=== PATIENT | male | born 2000 ===

== ENCOUNTER 2024-12-10 18:32 | Emergency (ER) | payer SELFPAY ==
--- NOTE | ~2024-12-10 | XR_ITS ---
CLINICAL HISTORY: chest pain Two views of the chest. COMPARISON: None provided. FINDINGS: Normal heart and mediastinal contours. No consolidation. No pleural effusion or pneumothorax. No acute fracture. IMPRESSION: 1. No consolidation. This document has been electronically signed by: Pedro Hernandez MD on 12/10/2024 20:18:15
--- NOTE | 2024-12-10 18:38 | ECG_ITS ---
Test Reason : CHEST PAIN Blood Pressure : */* mmHG Vent. Rate : 64 BPM Atrial Rate : 64 BPM P-R Int : 182 ms QRS Dur : 88 ms QT Int : 386 ms P-R-T Axes : 30 -6 31 degrees QTcB Int : 398 ms Normal sinus rhythm Normal ECG No previous ECGs available Referred By: Belinda Hernandes Electronically Signed By: London Sapp
--- NOTE | 2024-12-10 19:04 | ED_ITS ---
HPI - General Adult General Chief complaint: Chest Pain Stated complaint: cp Related Data Allergies Allergy/AdvReac Type Severity Reaction Status Date / Time No Known Allergies Allergy Verified 12/10/24 19:08 [facility] Social History Social History Advance Directives: No Advance Directives Information Provided: No Physical Exam ED Vital Signs: BMI result Body Mass Index 39.3 Course Course Course Narrative: This is a rapid medical exam performed by Travis Hernandes NP: Additional HPI, ROS, PE not included below will be deferred to primary provider. Patient is a 24- year old male presenting with complaint of midsternal chest pain which started this morning, woke him from sleep. Feels short of breath, states pain is radiating to the back and up right neck. Denies recent cough or other URI sxs. Plan: EKG, cxr, labs Patient left the emergency department before myself or any of the other clinicians could review or explain physical exam findings, test results, need or lack there of for additional testing, treatment options, or a treatment plan. Medical Decision Making Lab Data 12/10/24 19:33 12/10/24 19:33 Labs: Lab Results 12/10/24 Range/Units 19:33 WBC 9.6 (4.8-10.8) X10*3/uL RBC 4.88 (4.60-5.80) X10*6/uL Hgb 14.2 (14.0-18.0) g/dl Hct 43.4 (42.0-52.0) % MCV 88.9 (80.0-98.0) fL MCH 29.1 (27.0-33.0) pg MCHC 32.7 (31.0-36.0) g/dl RDW 12.8 (11.0-16.0) % Plt Count 311 (160-400) X10*3/uL MPV 9.2 L (9.4-12.4) fL Immature Gran % (Auto) 0.2 (0.0-0.4) % Neut % (Auto) 50.5 (45-73) % Lymph % (Auto) 34.1 (20-40) % Logan % (Auto) 7.7 (2-11) % Eos % (Auto) 6.9 H (0-4) % Baso % (Auto) 0.6 (0-2) % Lymph # (Auto) 3.3 (1.2-4.9) X10*3/uL Logan # (Auto) 0.7 (0.1-1.2) X10*3/uL Eos # (Auto) 0.7 H (0.0-0.4) X10*3/uL Baso # (Auto) 0.1 (0.0-0.2) X10*3/uL Abs Immat Gran (auto) 0.02 (0.00-0.03) X10*3/uL Absolute Neuts (auto) 4.9 (2.0-8.3) x10*3/uL Absolute Nucleated RBC 0.000 (0.0-0.012) X10*3/uL Nucleated RBC % (auto) 0.0 (0.0-0.2) /100WBC Sodium 141 (135-145) mmol/L Potassium 4.2 (3.3-5.1) mmol/L Chloride 105 (96-108) mmol/L Carbon Dioxide 27 (22-29) mmol/L Anion Gap 13 (12-20) BUN 11 (9-16) mg/dL Creatinine 0.98 (0.5-1.4) mg/dL Estim Creat Clear Calc 133.2 Estimated GFR > 60 Random Glucose 87 (60-115) mg/dL Calcium 9.8 (8.4-10.2) mg/dL Total Bilirubin 0.4 (0.0-1.0) mg/dL AST 25 (5-37) U/L ALT 26 (0-40) U/L Alkaline Phosphatase 104 (39-117) U/L Troponin I High Sens < 2.7 (<3.5-35.0) ng/L Total Protein 7.9 (6.5-8.0) g/dL Albumin 4.5 (3.5-5.0) g/dL Discharge Plan Discharge Clinical Impression: Chest pain Patient Disposition: Left W/O Completing Treatment Discharge Date/Time: 12/10/24 23:55
[2024-12-10 19:07] VITALS: BP 129/85; PULSE 79; RESP 18; TEMP 36.2; O2SAT 99; BMI 39.3
[2024-12-10 19:39] LABS: MANUAL DIFF FLAG NO
[2024-12-10 19:42] LABS: Hematocrit 43.4 % (42.0-52.0); Hemoglobin 14.2 g/dl (14.0-18.0); Imm Gran Abs Auto 0.02 X10*3/uL (0.00-0.03); Imm Gran Pct Auto 0.2 % (0.0-0.4); Lymphocytes Absolute Auto 3.3 X10*3/uL (1.2-4.9); Mean Corpuscular HGB Conc 32.7 g/dl (31.0-36.0); Mean Corpuscular Hemoglobin 29.1 pg (27.0-33.0); Mean Corpuscular Volume 88.9 fL (80.0-98.0); NRBC Abs Auto 0.000 X10*3/uL (0.0-0.012); NRBC Pct Auto 0.0 /100WBC (0.0-0.2); Platelet Count 311 X10*3/uL (160-400); Red Blood Count 4.88 X10*6/uL (4.60-5.80); White Blood Count 9.6 X10*3/uL (4.8-10.8)
[2024-12-10 20:06] LABS: Alanine Aminotransferase 26 U/L (0-40); Albumin Level 4.5 g/dL (3.5-5.0); Alkaline Phosphatase 104 U/L (39-117); Anion Gap 13 (12-20); Aspartate Amino Transferase 25 U/L (5-37); Blood Urea Nitrogen 11 mg/dL (9-16); Calcium 9.8 mg/dL (8.4-10.2); Carbon Dioxide 27 mmol/L (22-29); Chloride 105 mmol/L (96-108); Creatinine Clr Calc Pharmacy 133.2; Estimated Glomerular Filt Rate > 60; Potassium 4.2 mmol/L (3.3-5.1); Sodium 141 mmol/L (135-145); Total Protein 7.9 g/dL (6.5-8.0)
[2024-12-10 20:16] LABS: Troponin-I High Sensitivity < 2.7 ng/L (<3.5-35.0)
== END 2024-12-10 23:55 | disposition left against medical advice (07) ==
LOC: HO.ED 23:53
PROVIDERS: Registered Nurse Emergency; Emergency Provider Emergency Medicine
DX: R07.9 Chest pain, unspecified (principal); Z53.21 Procedure and treatment not carried out due to patient leaving prior to being seen by health care provider
CPT/HCPCS: 36415; 71046; 80053; 84484; 85025; 93005; 99283

== ENCOUNTER → 2024-12-10 18:38 | Outpatient (BNV) | payer SELFPAY | PROVIDERS: Emergency Provider Emergency Medicine; Visit Provider Internal Medicine Cardiovascular Disease | DX: R07.9 Chest pain, unspecified (principal) | CPT/HCPCS: 93010 ==

== ENCOUNTER → 2024-12-10 19:05 | Outpatient (BNV) | payer SELFPAY | PROVIDERS: Visit Provider Radiology Diagnostic Radiology | DX: R07.9 Chest pain, unspecified (principal) | CPT/HCPCS: 71046 ==